=== PATIENT | female | born 1940 | race Caucasian/White ===

== ENCOUNTER 2019-05-06 06:58 | Day surgery (SDC) | payer BC | END 2019-05-06 22:55 | disposition home or self-care (01) | LOC: MOI US 06:58 | DX: C50.812 Malignant neoplasm of overlapping sites of left female breast (principal); Z17.0 Estrogen receptor positive status [ER+] | CPT/HCPCS: 19083; 77065; 88305; 88360; A4648 ==

== ENCOUNTER 2020-11-06 07:08 | Day surgery (SDC) | payer BC, MEDICARE ==
[~2020-11-06] VITALS: Ht 165.1 cm; Wt 78.0 kg
[~2020-11-06 07:08] MED LIST: ATOR20 PO; FARXIGA10 MG PO; LEVEMIR100 UNIT/1 SC; LISI20 PO; NOVOLOG100 UNIT/2 SC; THYR60 PO; TOCO1000 PO; VITAMIN A PO; VITAMIN B PO
--- NOTE | 2020-11-06 08:46 | NUR ---
Ambulatory in Day Surgery History, Chart, Medications and Allergies reviewed before start of procedure.Patient confirms NPO status and agrees with scheduled surgery. Patient reports completing Chlorhexadine shower X2 prior to admission to hospital.Surgical site prepped with 2% Chlorhexidine cloth wipe. Lungs clear T/O to Auscultation.
--- NOTE | 2020-11-06 12:29 | NUR ---
PT ARRIVED TO THE ROOM AT APPROXIMATELY 1205, SHE IS ALERT AND ORIENTED AT TIME OF ARRIVAL TO ROOM. BP ELEVATED, WILL MONITOR. PT DENIES PAIN.
--- NOTE | 2020-11-06 16:10 | NUR ---
POST OP: REPORT RECEIVED FROM LYNN, CHECKROOM CHIEF AT ABOUT 1155. CLAIM AUDITOR DERREK TO SETTLE PT IN ROOM
--- NOTE | 2020-11-06 16:12 | NUR ---
SUMMARY: PT IS POD0 L MASTECTOMY. VSS, A/O. PT DOING WELL, HAS AMBULATED AND VOIDED. ABLE TO EAT SOME FOOD, REG DIET FOR DINNER. SURGICAL SITE WNL. MARIE DRAINED TOTAL OF 50ML SALOME BLOOD, DR. SHEETS MADE AWARE, WILL MONITOR. PAIN SEEMS TO BE MANAGED WELL PER EMAR. REPORT PASSED TO DAVE RAO AT THIS TIME.
--- NOTE | 2020-11-06 16:40 | NUR ---
pt took her bs on her own cbg monitor it was elevated dr mendoza to be called re order pt also does not have her med ordered insulin or po meds
--- NOTE | 2020-11-06 17:28 | NUR ---
16 units humulog given per pt order cbg >160
--- NOTE | 2020-11-06 17:40 | NUR ---
pt req another diet unable to juan daniel reg text req dental soft
--- NOTE | 2020-11-07 04:30 | NUR ---
SHIFT SUMMARY: WILMA IS A&O X 4 WITH SOME MILD FORGETFULNESS NOTED. VSS, BP MILDLY ELEVATED WHICH SHE STATES IS D/T NOT TAKING HER BP MEDICATION YESTERDAY. SHE HAS HAD 95 CC OUT OF THE MARIE DRAIN THIS SHIFT. SHE HAS REQUESTED THAT THE OUTPUT BE DOCUMENTED AND THE DOCTOR NOTIFIED EACH TIME THE DRAIN IS EMPTIED. SHE WAS EDUCATED ON THE DOCUMENTATION PROCESS AND REASSURED THAT THE DOCTOR WOULD INDEED BE MADE AWARE. SHE IS ABLE TO MAKE HER NEEDS KNOWN. SHE IS TOLERATING PO INTAKE WELL, USES THE CALL LIGHT APPROPRIATELY, AND IS NOT IMPULSIVE. SHE IS A STANDBY ASSIST TO THE BATHROOM FOR CORD MANAGEMENT. SHE HAS DENIED PAIN THIS SHIFT. SHE IS LYING IN BED WITH THE CALL LIGHT IN REACH. WILL REPORT TO DAY SHIFT RN.
--- NOTE | 2020-11-07 07:58 | NUR ---
LOW CBG LOW BLOOD GLUCOSE RECIEVED ON AM CHECK. ON RECHECK PT GLUCOSE UP >200, ON PTS HOME METER SHE GOT A READING OF 164. PT WAS ALERT AND ORIENTED AND DENIED FEELING HYPOGLYCEMIC. SHE REQUESTED RECHECK.
--- NOTE | 2020-11-07 13:28 | NUR ---
DISCHARGE PT LEFT AT APPROX 1310 VIA WHEELCHAIR. DISCHARGE INSTRUCTIONS GONE OVER WITH PATIENT AND . DRESSING CHANGE SUPPLIES SENT HOME. INSTRUCTIONS ON DRESSING CHANGE GIVEN TO AND PT. DIRECTIONS FOR MARIE DRAIN CARE GONE OVER WITH AND PT. DENIED FURTHER QUESTIONS. PT DENIED PAIN PRIOR TO DISCHARGE. DRESSING CDI. BINDER IN PLACE.
--- NOTE | 2020-11-07 13:32 | NUR ---
PT REFUSED LUNCHTIME INSULIN. STATED SHE DOES NOT TAKE IT AT THIS TIME AND WAS GOING HOME SOON.
== END 2020-11-07 13:13 | disposition home or self-care (01) ==
LOC: ORSCMMR 07:08 → ORD 08:30 → SURS 12:03 → ORSCMMR 11-07 13:13
PROVIDERS: Surgery
PROC: 0HBU0ZZ Excision of Left Breast, Open Approach (ICD-10-PCS; principal; 2020-11-06 08:30)
DX: C50.912 Malignant neoplasm of unspecified site of left female breast (principal); I10 Essential (primary) hypertension; E11.9 Type 2 diabetes mellitus without complications; E03.9 Hypothyroidism, unspecified; E78.00 Pure hypercholesterolemia, unspecified; Z79.4 Long term (current) use of insulin; Z79.899 Other long term (current) drug therapy
CPT/HCPCS: 82947; 88307; A9270; A9270-GY; J0690; J1100; J1815; J2250; J2405; J2704; J3010; J7120

== ENCOUNTER 2022-02-15 09:32 | Inpatient (IN) | payer MEDICARE, OTHER ==
[~2022-02-15] VITALS: Ht 165.1 cm; Wt 78.2 kg
[2022-02-15 11:05] LABS: BASOPHILS ABSOLUTE AUTO 0.16 K/mm3 (0.00-0.23); BASOPHILS PERCENT AUTO 1 % (0-2); EOSINOPHILS ABSOLUTE AUTO 0.12 K/mm3 (0.00-0.68); EOSINOPHILS PERCENT AUTO 1 % (0-6); Hematocrit 51.3 % (33.0-51.0); IMMATURE GRAN ABSOLUTE AUTO 0.39 K/mm3 (0.00-0.10); IMMATURE GRAN PERCENT AUTO 2 % (0-1); LYMPHOCYTES ABSOLUTE AUTO 3.52 K/mm3 (0.84-5.20); LYMPHOCYTES PERCENT AUTO 17 % (21-46); MONOCYTES ABSOLUTE AUTO 1.45 K/mm3 (0.16-1.47); MONOCYTES PERCENT AUTO 7 % (4-13); Mean Corpuscular HGB 30.5 pg (26.0-34.0); Mean Corpuscular HGB Conc 33.1 g/dL (31.5-36.5); Mean Corpuscular Volume 92 fL (80-100); Mean Platelet Volume 9.9 fL (9.1-12.4); NEUTROPHILS ABSOLUTE AUTO 15.57 K/mm3 (1.96-9.15); NEUTROPHILS PERCENT AUTO 73 % (41-73); Platelet Count 386 K/mm3 (150-400); RDW Coefficient Variation 13.1 % (11.7-14.2); RDW Standard Deviation 43.8 fL (35.1-46.3); Red Blood Cell Count 5.58 M/mm3 (3.80-5.20); White Blood Cell Count 21.21 K/mm3 (4.00-11.30)
[2022-02-15 11:57] LABS: Influenza A, PCR NEGATIVE (NEGATIVE); Influenza B, PCR NEGATIVE (NEGATIVE); Resp Syncytial Virus, PCR NEGATIVE (NEGATIVE); SARS-Cov-2 (COVID-19) PCR, MMC NEGATIVE (NEGATIVE)
[2022-02-15 11:59] LABS: Albumin, Blood 2.4 g/dL (3.4-5.0); Albumin/Globulin Ratio 0.6 (0.8-1.8); Bilirubin, Total 0.2 mg/dL (0.1-1.0); Bun/Creatinine Ratio 163.9 (12.0-20.0); Calcium, Blood 7.7 mg/dL (8.5-10.1); Creatinine, Blood 0.59 mg/dL (0.40-1.00); Free Thyroxine 0.61 ng/dL (0.70-1.60); Globulin, Blood 3.7 g/dL (2.2-4.0); Magnesium, Blood 2.2 mg/dL (1.6-2.4); Potassium, Blood 5.1 mmol/L (3.5-5.5); Thyroid Stimulating Hormone 0.153 uIU/mL (0.360-4.800); Total Protein, Blood 6.1 g/dL (6.4-8.2); Triiodothyronine, Free 2.54 pg/mL (2.18-3.98)
[2022-02-15 12:07] LABS: Source, Urine Clean Catch
[2022-02-15 12:22] LABS: Appearance, Urine Clear (Clear); Bilirubin, Urine Neg (Neg); Blood, Urine 3+ (Neg); Color, Urine Yellow (P-Yellow); Glucose Qualitative, Urine 4+ (Neg); Ketones, Urine Neg (Neg); Leukocyte Esterase, Urine 1+ (Neg); Nitrite, Urine Neg (Neg); Protein, Urine Neg (Neg); Urobilinogen, Urine NORM (Normal)
[2022-02-15 13:04] LABS: Red Blood Cells, Urine 0-2 /hpf (0-2)
[2022-02-15 13:08] LABS: Bacteria Many /hpf; Squamous Epithelial Cells Not Seen /hpf (Few)
[2022-02-15 15:15] LABS: Base Excess Venous -14.8 mmol/L; Bicarbonate Venous 14.7 mmol/L (24.0-30.0); PCO2 Venous 28.5 mmHg (38-42); PO2 Venous 115 mmHg (38-42); pH Blood Venous 7.25 (7.34-7.37)
--- NOTE | 2022-02-15 17:00 | NUR ---
PT NEW ADMIT FROM ED. PT'S AT BEDSIDE AND ANSWERS QUESTIONS ABOUT HEALTH HISTORY AND MEDICATIONS. PT CONTRIBUTES TO CONVERSATION WELL. AMBULATES TO BATHROOM WITH 1 ASSIST AND WALKER. ODOROUS URINE NOTED AND URGENCY OF PT. BED ALARM ON FOR SAFETY. IVF RUNNING AT 150/HR PER ORDERS. NO ACUTE NEEDS OR CONCERNS AT THIS TIME.
[2022-02-15 18:38] LABS: Bun/Creatinine Ratio 128.2 (12.0-20.0); Calcium, Blood 8.7 mg/dL (8.5-10.1); Creatinine, Blood 0.62 mg/dL (0.40-1.00); Potassium, Blood 4.8 mmol/L (3.5-5.5)
--- NOTE | 2022-02-16 05:16 | NUR ---
NURSE NOTE/SHIFT SUMMARY: PT A/OX4, OCCASSIONAL REPEATED QUESTIONS. PT STANDBY ASSIST TO BEDSIDE COMMODE. DUE TO INCREASED WEAKNESS, FREQUENT URIRNATION AND URGENCY [place] PLACED- GOOD OUPUT. BLOOD SUGAR INCREASING THROUGHOUT THE NIGHT- CARLOS GAVE TELEPHONE ORDER FOR 12 UNITS REGULAR INSULIN X1 FOR ADDITIONAL GLUCOSE COVERAGE. BLOOD PRESSURE CONTINUED TO INCREASE UP TO SYSTOLIC BP REACHING 200'S AND 190 SYSTOLIC. 2 DOSES OF 10 MG IV HYDRALAZINE ADMINISTERED TO GET BLOOD PRESSURE UNDER CONTROL. PT CONTINUES TO REPORTS INCREASE STOMACH BURNING SENSATION AND REPORTS THAT IS WHY SHE DRINKS LARGE AMOUNTS OF MILK AT HOME. FREQUENTLY REQUESTING MILK AND ENSURE YET DECLINING ALL WATER. PT REPORTS MILK CONSUMPTION HAS NOT GIVEN MUCH RELIEF. EDUCATED ON SUGAR INTAKE WITH MILK AND ENSURE PRODUCTS WITH GLUCOSE MANAGEMENT. MAALOX GIVEN THIS MORNING TO ASSIST IN GI DISCOMFORT. PATIENT REPORTS SIGNIFICANT DECREASE IN GI DISCOMFORT AND IS PLEASED WITH GASTRIC BURNING AND CRAMPING RELIEF.
[2022-02-16 05:18] LABS: BASOPHILS PERCENT AUTO 1 % (0-2); EOSINOPHILS ABSOLUTE AUTO 0.06 K/mm3 (0.00-0.68); EOSINOPHILS PERCENT AUTO 0 % (0-6); Hematocrit 52.8 % (33.0-51.0); Hemoglobin 17.8 g/dL (11.5-16.0); IMMATURE GRAN ABSOLUTE AUTO 0.36 K/mm3 (0.00-0.10); IMMATURE GRAN PERCENT AUTO 2 % (0-1); LYMPHOCYTES ABSOLUTE AUTO 2.88 K/mm3 (0.84-5.20); LYMPHOCYTES PERCENT AUTO 14 % (21-46); MONOCYTES ABSOLUTE AUTO 1.38 K/mm3 (0.16-1.47); MONOCYTES PERCENT AUTO 7 % (4-13); Mean Corpuscular HGB 30.4 pg (26.0-34.0); Mean Corpuscular HGB Conc 33.7 g/dL (31.5-36.5); Mean Corpuscular Volume 90 fL (80-100); Mean Platelet Volume 9.6 fL (9.1-12.4); NEUTROPHILS ABSOLUTE AUTO 16.56 K/mm3 (1.96-9.15); NEUTROPHILS PERCENT AUTO 78 % (41-73); Platelet Count 375 K/mm3 (150-400); RDW Coefficient Variation 13.2 % (11.7-14.2); RDW Standard Deviation 43.9 fL (35.1-46.3); Red Blood Cell Count 5.85 M/mm3 (3.80-5.20); White Blood Cell Count 21.34 K/mm3 (4.00-11.30)
[2022-02-16 05:52] LABS: Magnesium, Blood 2.6 mg/dL (1.6-2.4)
[2022-02-16 05:53] LABS: Albumin, Blood 3.1 g/dL (3.4-5.0); Albumin/Globulin Ratio 0.7 (0.8-1.8); Bilirubin, Total 0.3 mg/dL (0.1-1.0); Bun/Creatinine Ratio 100.2 (12.0-20.0); Calcium, Blood 9.4 mg/dL (8.5-10.1); Creatinine, Blood 0.59 mg/dL (0.40-1.00); Globulin, Blood 4.4 g/dL (2.2-4.0); Potassium, Blood 4.9 mmol/L (3.5-5.5); Total Protein, Blood 7.5 g/dL (6.4-8.2)
[2022-02-16 08:00] LABS: Base Excess Venous -4.9 mmol/L; PCO2 Venous 40.3 mmHg (38-42); pH Blood Venous 7.33 (7.34-7.37)
--- NOTE | 2022-02-16 18:14 | NUR ---
SHIFT SUMMARY PT A&OX3-4 AND IN PLEASENT MOOD T/O SHIFT. PT SPOUSE IN TO SEE HER DURING VISITING HOURS. BLOOD GLUCOSE MEDICATED PER EMAR. EATS MINIMAL AMOUNT OF MEAL-SPOUSE PROVIDED PREMIER PROTEIN SHAKES IN PT ROOM. CALL LIGHT W/IN REACH, VSS. PLAN TO BE UP FOR MEALS. C/O HEART BURN/INDIGESTION T/O SHIFT.
--- NOTE | 2022-02-17 05:47 | NUR ---
SHIFT SUMMARY 81 YR F ADMITTED ON 02/15/22 FOR SEPSIS/UTI. FULL CODE. NO ACUTE CHANGES THIS SHIFT. PT HAS SPENT ALMOST THIS ENTIRE SHIFT ASLEEP. SHE HAS NOT ASKED FOR ANY MILK OR SHAKE DRINKS THIS SHIFT. SHE IS PLEASANT AND COOPERATIVE. BED IN LOW POSITION AND CALL LIGHT WITHIN REACH.
[2022-02-17 06:01] LABS: Base Excess Venous -6.7 mmol/L; Bicarbonate Venous 20.2 mmol/L (24.0-30.0); PCO2 Venous 29.9 mmHg (38-42); PO2 Venous 134 mmHg (38-42); pH Blood Venous 7.39 (7.34-7.37)
[2022-02-17 06:13] LABS: Bun/Creatinine Ratio 123.3 (12.0-20.0); Calcium, Blood 8.9 mg/dL (8.5-10.1); Creatinine, Blood 0.44 mg/dL (0.40-1.00); Magnesium, Blood 2.5 mg/dL (1.6-2.4); Phosphorus, Blood 2.7 mg/dL (2.5-4.9); Potassium, Blood 4.5 mmol/L (3.5-5.5)
--- NOTE | 2022-02-17 16:19 | NUR ---
SHIFT SUMMARY PT A&O X4, MOOD WITHDRAWN-QUIET AFFECT. SPOUSE @ BEDSIDE T/O MOST OF SHIFT. PT UP FOR ALL THREE MEALS, PURE WICK IN PLACE WHILE IN BED. INCONT. T/O SHIFT. VSS. CALL LIGHT W/IN REACH. BLOOD GLUCOSE MEDICATED PER EMAR. PT EDUCATED ABOUT THE AMOUNT OF SUGAR FOUND IN MILK AFTER SEVERAL REQUESTS FOR ADDITIONAL MILK. C/O STOMACH ACHE MEDICATED PER EMAR.
--- NOTE | 2022-02-18 04:40 | NUR ---
Rn summary: Patient is alert and oriented. Very pleasant. Pt has done well tonight. She had purewick with yellow urine while in bed. Bowel tones are hyper, pt medicated x2 with maalox for stomache upset. Pt drinking protein drinks from home. Pt states plan is for her to discharge home today. Call light in reach, uses it apropriately.
[2022-02-18 05:26] LABS: BASOPHILS ABSOLUTE AUTO 0.06 K/mm3 (0.00-0.23); BASOPHILS PERCENT AUTO 0 % (0-2); EOSINOPHILS ABSOLUTE AUTO 0.24 K/mm3 (0.00-0.68); EOSINOPHILS PERCENT AUTO 2 % (0-6); Hematocrit 45.5 % (33.0-51.0); Hemoglobin 15.2 g/dL (11.5-16.0); IMMATURE GRAN ABSOLUTE AUTO 0.15 K/mm3 (0.00-0.10); IMMATURE GRAN PERCENT AUTO 1 % (0-1); LYMPHOCYTES ABSOLUTE AUTO 3.51 K/mm3 (0.84-5.20); LYMPHOCYTES PERCENT AUTO 23 % (21-46); MONOCYTES ABSOLUTE AUTO 1.19 K/mm3 (0.16-1.47); MONOCYTES PERCENT AUTO 8 % (4-13); Mean Corpuscular HGB 30.3 pg (26.0-34.0); Mean Corpuscular HGB Conc 33.4 g/dL (31.5-36.5); Mean Corpuscular Volume 91 fL (80-100); Mean Platelet Volume 9.6 fL (9.1-12.4); NEUTROPHILS ABSOLUTE AUTO 9.98 K/mm3 (1.96-9.15); NEUTROPHILS PERCENT AUTO 66 % (41-73); Platelet Count 360 K/mm3 (150-400); RDW Coefficient Variation 13.3 % (11.7-14.2); Red Blood Cell Count 5.01 M/mm3 (3.80-5.20); White Blood Cell Count 15.13 K/mm3 (4.00-11.30)
[2022-02-18 05:49] LABS: Bun/Creatinine Ratio 104.4 (12.0-20.0); Calcium, Blood 8.8 mg/dL (8.5-10.1); Creatinine, Blood 0.52 mg/dL (0.40-1.00); Potassium, Blood 4.3 mmol/L (3.5-5.5)
[2022-02-18] MEDS ORDERED: VISBIOME 112.51 EACH PO (12:17)
[2022-02-18] MEDS ORDERED: CEPH500 PO (12:17)
== END 2022-02-18 12:48 | disposition home or self-care (01) | DRG 690 ==
LOC: ER 09:32 → MEDS 14:25
PROVIDERS: Emergency Medicine; Internal Medicine; Nurse Practitioner Acute Care; Physician Assistant; ADMIT Internal Medicine
DX: N39.0 Urinary tract infection, site not specified (principal); E87.2 Acidosis; Z20.822 Contact with and (suspected) exposure to COVID-19; E86.0 Dehydration; B96.1 Klebsiella pneumoniae [K. pneumoniae] as the cause of diseases classified elsewhere; E87.8 Other disorders of electrolyte and fluid balance, not elsewhere classified; T38.3X5A Adverse effect of insulin and oral hypoglycemic [antidiabetic] drugs, initial encounter; E78.00 Pure hypercholesterolemia, unspecified; E11.65 Type 2 diabetes mellitus with hyperglycemia; I10 Essential (primary) hypertension; E03.9 Hypothyroidism, unspecified; Z79.4 Long term (current) use of insulin; Z79.899 Other long term (current) drug therapy; Z85.3 Personal history of malignant neoplasm of breast; Z90.12 Acquired absence of left breast and nipple; Z90.89 Acquired absence of other organs; Z98.890 Other specified postprocedural states
CPT/HCPCS: 0241U; 36415; 80048; 80053; 81001; 82010; 82803; 82947; 83605; 83735; 83880; 84100; 84439; 84443; 84481; 84484; 85025; 87040; 87077; 87086; 87186; 93005; 93010; 96374; 97110; 97162; 97530; 99285-25; A9270; J0360; J0696; J1650; J1815; J7030

== ENCOUNTER 2022-03-10 10:47 | Inpatient (IN) | payer BC ==
[~2022-03-10] VITALS: Ht 165.1 cm; Wt 81.3 kg
[~2022-03-10 10:47] MED LIST changes: +CEPH500 PO; +VISBIOME 112.51 EACH PO
[2022-03-10 11:30] LABS: BASOPHILS ABSOLUTE AUTO 0.15 K/mm3 (0.00-0.23); BASOPHILS PERCENT AUTO 1 % (0-2); EOSINOPHILS ABSOLUTE AUTO 0.06 K/mm3 (0.00-0.68); EOSINOPHILS PERCENT AUTO 0 % (0-6); Hematocrit 35.5 % (33.0-51.0); Hemoglobin 11.3 g/dL (11.5-16.0); IMMATURE GRAN ABSOLUTE AUTO 0.75 K/mm3 (0.00-0.10); IMMATURE GRAN PERCENT AUTO 3 % (0-1); LYMPHOCYTES ABSOLUTE AUTO 7.66 K/mm3 (0.84-5.20); LYMPHOCYTES PERCENT AUTO 30 % (21-46); MONOCYTES ABSOLUTE AUTO 1.73 K/mm3 (0.16-1.47); MONOCYTES PERCENT AUTO 7 % (4-13); Mean Corpuscular HGB 30.1 pg (26.0-34.0); Mean Corpuscular HGB Conc 31.8 g/dL (31.5-36.5); Mean Corpuscular Volume 94 fL (80-100); Mean Platelet Volume 9.9 fL (9.1-12.4); NEUTROPHILS ABSOLUTE AUTO 15.11 K/mm3 (1.96-9.15); NEUTROPHILS PERCENT AUTO 59 % (41-73); NRBC ABSOLUTE 0.06 K/mm3 (0.00-0.02); NRBC Auto 0.2 /100 WBC (0.0-0.2); Platelet Count 418 K/mm3 (150-400); RDW Standard Deviation 47.4 fL (35.1-46.3); Red Blood Cell Count 3.76 M/mm3 (3.80-5.20); White Blood Cell Count 25.46 K/mm3 (4.00-11.30)
[2022-03-10 11:52] LABS: Albumin, Blood 2.8 g/dL (3.4-5.0); Albumin/Globulin Ratio 0.8 (0.8-1.8); Bilirubin, Total 0.1 mg/dL (0.1-1.0); Bun/Creatinine Ratio 97.6 (12.0-20.0); Calcium, Blood 9.5 mg/dL (8.5-10.1); Creatinine, Blood 0.67 mg/dL (0.40-1.00); Globulin, Blood 3.7 g/dL (2.2-4.0); Potassium, Blood 5.1 mmol/L (3.5-5.5); Total Protein, Blood 6.5 g/dL (6.4-8.2)
[2022-03-10 12:35] LABS: Source, Urine Clean Catch
[2022-03-10 12:57] LABS: Bilirubin, Urine Neg (Neg); Blood, Urine 1+ (Neg); Glucose Qualitative, Urine Neg (Neg); Ketones, Urine Neg (Neg); Leukocyte Esterase, Urine 1+ (Neg); Nitrite, Urine Neg (Neg); Protein, Urine Neg (Neg); Urobilinogen, Urine NORM (Normal)
[2022-03-10 13:23] LABS: Appearance, Urine Clear (Clear); Color, Urine Yellow (P-Yellow)
[2022-03-10 13:24] LABS: Bacteria Many /hpf; Red Blood Cells, Urine 0-2 /hpf (0-2); Squamous Epithelial Cells Few /hpf (Few); White Blood Cells, Urine 0-2 /hpf (0-5)
[2022-03-10 15:11] LABS: Hematocrit 29.6 % (33.0-51.0); Hemoglobin 9.6 g/dL (11.5-16.0)
--- NOTE | 2022-03-10 16:17 | NUR ---
THE PATIENT WAS BROUGHT TO DAY SURGERY FROM THE ER FOR HER PROCEDURE.
--- NOTE | 2022-03-10 17:29 | NUR ---
03/10/22 1729 Cindi Guevara HISTORY, CHART, MEDICATIONS AND ALLERGIES REVIEWED BEFORE START OF PROCEDURE. PATIENT CONFIRMS NPO STATUS AND AGREES WITH SCHEDULED PROCEDURE. 3-LEAD EKG REVIEWED WITH PHYSICIAN PRIOR TO START OF PROCEDURE. MONITOR INTACT WITH CONTINUOUS PULSE OXIMETRY,CAPNOGRAPHY, 3-LEAD EKG, INTERMITTENT BP. SUPPLEMENTAL O2 TO BE TITRATED THROUGHOUT PROCEDURE TO MAINTAIN O2 SATURATION ABOVE 90%. PATIENT DETERMINED TO BE ASA APPROPRIATE FOR PROPOFOL SEDATION PRIOR TO START OF PROCEDURE BY DR. KNIGHT, ANESTHESIOLOGIST, CLEAR PT FOR RN SEDATION, CASE WAS ORIGINALLY SCHEDULED ADD ON EGD WITH MAC.
--- NOTE | 2022-03-10 18:48 | NUR ---
Received report from Day surgery and patient arrived via gurney and monitored. She is alert and oriented and is able to communicate her needs. he rusband followed and is now at bedside. Dr Mcdonnell came by as well and gave report. She has 20ga IV in RAC and is infusing Protonix at 10ml/hr. She is very pale and states cold and gave warm blankets. She will be receiving 1 unit PRBC and McGlade consult in if become hemodynamically unstable.
[2022-03-10 18:54] LABS: Hematocrit 26.1 % (33.0-51.0); Hemoglobin 8.7 g/dL (11.5-16.0)
--- NOTE | 2022-03-10 19:35 | NUR ---
ASSESSMENT/ASSUMED CARE PT A/O X 4. AT BEDSIDE, PHONE NUMBER WRITTEN ON WHITEBOARD, THEN WENT HOME FOR THE NIGHT. PT SKIN COOL, AND PALE. NSR IN THE 80S, VSS. LUNGS CLEAR AND DIM. POWERGLIDE INSERTED AND PRBC UNIT STARTED. PROTONIX GTT INFUSING. LONG ACTING INSULIN HELD D/T NPO STATUS AND CBG OF 94. PT DENIES PAIN, AWNSERING QUESTIONS AND FOLLOWING DIRECTIONS.
[2022-03-10 21:26] LABS: Source, Urine Foley catheter
[2022-03-10 21:51] LABS: Bilirubin, Urine Neg (Neg); Blood, Urine Neg (Neg); Glucose Qualitative, Urine Neg (Neg); Ketones, Urine Neg (Neg); Leukocyte Esterase, Urine 1+ (Neg); Nitrite, Urine Neg (Neg); Protein, Urine Neg (Neg); Specific Gravity, Urine 1.015 (1.003-1.022); Urobilinogen, Urine NORM (Normal)
[2022-03-10 22:00] LABS: Appearance, Urine Clear (Clear); Color, Urine Yellow (P-Yellow)
[2022-03-10 22:01] LABS: Bacteria Rare /hpf; Red Blood Cells, Urine Not Seen /hpf (0-2); Squamous Epithelial Cells Not Seen /hpf (Few)
[2022-03-11 00:07] LABS: Hematocrit 29.4 % (33.0-51.0); Hemoglobin 9.8 g/dL (11.5-16.0)
--- NOTE | 2022-03-11 00:12 | NUR ---
MD CALL TO DR HANCOCK REGARDING BLOOD GLUCOSE 60. ORDERS RECEIVED.
--- NOTE | 2022-03-11 00:28 | NUR ---
BLOOD GLUCOSE 60 CHANGED IV FLUIDS TO D5 1/2 NS 75 ML/HR. GIVEN 1/2 AMP D50. PT DENIES S/S OF HYPOGLYCEMIA.
[2022-03-11 03:29] LABS: BASOPHILS ABSOLUTE AUTO 0.07 K/mm3 (0.00-0.23); BASOPHILS PERCENT AUTO 1 % (0-2); EOSINOPHILS ABSOLUTE AUTO 0.12 K/mm3 (0.00-0.68); EOSINOPHILS PERCENT AUTO 1 % (0-6); Hematocrit 27.8 % (33.0-51.0); Hemoglobin 9.4 g/dL (11.5-16.0); IMMATURE GRAN ABSOLUTE AUTO 0.21 K/mm3 (0.00-0.10); IMMATURE GRAN PERCENT AUTO 1 % (0-1); LYMPHOCYTES ABSOLUTE AUTO 2.36 K/mm3 (0.84-5.20); LYMPHOCYTES PERCENT AUTO 16 % (21-46); MONOCYTES ABSOLUTE AUTO 1.22 K/mm3 (0.16-1.47); MONOCYTES PERCENT AUTO 8 % (4-13); Mean Corpuscular HGB 31.1 pg (26.0-34.0); Mean Corpuscular HGB Conc 33.8 g/dL (31.5-36.5); Mean Corpuscular Volume 92 fL (80-100); Mean Platelet Volume 9.4 fL (9.1-12.4); NEUTROPHILS ABSOLUTE AUTO 10.78 K/mm3 (1.96-9.15); NEUTROPHILS PERCENT AUTO 73 % (41-73); Platelet Count 239 K/mm3 (150-400); RDW Coefficient Variation 14.3 % (11.7-14.2); RDW Standard Deviation 47.1 fL (35.1-46.3); Red Blood Cell Count 3.02 M/mm3 (3.80-5.20); White Blood Cell Count 14.76 K/mm3 (4.00-11.30)
[2022-03-11 03:47] LABS: Albumin, Blood 2.2 g/dL (3.4-5.0); Albumin/Globulin Ratio 0.8 (0.8-1.8); Bilirubin, Total 0.3 mg/dL (0.1-1.0); Bun/Creatinine Ratio 62.8 (12.0-20.0); Calcium, Blood 7.7 mg/dL (8.5-10.1); Creatinine, Blood 0.59 mg/dL (0.40-1.00); Globulin, Blood 2.8 g/dL (2.2-4.0); Magnesium, Blood 1.9 mg/dL (1.6-2.4); Potassium, Blood 4.2 mmol/L (3.5-5.5)
[2022-03-11 06:07] LABS: Hematocrit 27.1 % (33.0-51.0); Hemoglobin 8.8 g/dL (11.5-16.0)
--- NOTE | 2022-03-11 06:31 | NUR ---
SHIFT SUMMARY PT IS A/O X 4. PALE, AND COOL SKIN. NRS 60-80S. VSS. LUNG SOUNDS COARSE AND DIM IN THE BASES. SATS HIGH 90'S ON 2L NC. ACTIVE BOWEL SOUNDS. NO BLEEDING NOTED ON THIS PM. 1 UNIT PRBC INFUSED. SANCHEZ PATENT DRAINING CLEAR YELLOW URINE. HYPOGLYCEMIC AT 0000 CBG. SEE PREVIOUS NOTE FOR INTERVENTIONS. CURRENTLY RUNNING D5 1/2 75ML/HR IN DAMIAN POWERGLIDE. PROTONIX GTT RUNNING 10ML/HR IN L FOREARM PIV.
[2022-03-11 11:13] LABS: Hematocrit 27.8 % (33.0-51.0); Hemoglobin 9.1 g/dL (11.5-16.0)
[2022-03-11 15:46] LABS: Hematocrit 28.5 % (33.0-51.0); Hemoglobin 9.4 g/dL (11.5-16.0)
--- NOTE | 2022-03-11 18:46 | NUR ---
SUMMARY PT RESTING IN BED. SHE IS FEELING MUCH BETTER. DENIES ALL PAIN TODAY. NO SIGNS OF BLEEDING TODAY. HAS BEEN TOLERATING CLEAR LIQUID TRAY. VSS. NO ACUTE CHANGES THIS SHIFT. USING CALL LIGHT APPROPRIATELY.
[2022-03-11 19:43] LABS: Hematocrit 27.3 % (33.0-51.0); Hemoglobin 9.1 g/dL (11.5-16.0)
--- NOTE | 2022-03-11 22:44 | NUR ---
ASSUMED CARE PATIENT IS LYING IN BED WATCHING TV. GREETS STAFF UPON ENTERING ROOM. DINNER TRAY IS ON BEDSIDE TABLE, EMPTY OF FOOD. WATER AND BELONGINGS ON BEDSIDE TABLE. PROTONIX GTT INF TO LAC IV. NO VISITORS IN THE ROOM AT THIS TIME. SANCHEZ PATENT AND DRAINING YELLOW CLEAR URINE TO GRAVITY. PATIENT DENIES PAIN AND NAUSEA. NO SIGNS OF BLEEDING SEEN. VSS. REPORT RECEIVED FROM DAVE ABDALLA.
[2022-03-12 03:43] LABS: BASOPHILS ABSOLUTE AUTO 0.07 K/mm3 (0.00-0.23); BASOPHILS PERCENT AUTO 1 % (0-2); EOSINOPHILS ABSOLUTE AUTO 0.13 K/mm3 (0.00-0.68); EOSINOPHILS PERCENT AUTO 1 % (0-6); Hematocrit 28.2 % (33.0-51.0); Hemoglobin 9.2 g/dL (11.5-16.0); IMMATURE GRAN ABSOLUTE AUTO 0.12 K/mm3 (0.00-0.10); IMMATURE GRAN PERCENT AUTO 1 % (0-1); LYMPHOCYTES ABSOLUTE AUTO 2.59 K/mm3 (0.84-5.20); LYMPHOCYTES PERCENT AUTO 20 % (21-46); MONOCYTES ABSOLUTE AUTO 1.11 K/mm3 (0.16-1.47); MONOCYTES PERCENT AUTO 8 % (4-13); Mean Corpuscular HGB 30.6 pg (26.0-34.0); Mean Corpuscular HGB Conc 32.6 g/dL (31.5-36.5); Mean Corpuscular Volume 94 fL (80-100); Mean Platelet Volume 9.9 fL (9.1-12.4); NEUTROPHILS ABSOLUTE AUTO 9.23 K/mm3 (1.96-9.15); NEUTROPHILS PERCENT AUTO 70 % (41-73); Platelet Count 235 K/mm3 (150-400); RDW Coefficient Variation 14.4 % (11.7-14.2); RDW Standard Deviation 49.1 fL (35.1-46.3); Red Blood Cell Count 3.01 M/mm3 (3.80-5.20); White Blood Cell Count 13.25 K/mm3 (4.00-11.30)
[2022-03-12 03:57] LABS: Bun/Creatinine Ratio 30.8 (12.0-20.0); Creatinine, Blood 0.55 mg/dL (0.40-1.00); Potassium, Blood 4.6 mmol/L (3.5-5.5)
--- NOTE | 2022-03-12 04:52 | NUR ---
SHIFT SUMMARY PATIENT HAD DIFFICULTY FALLING ASLEEP-BENADRYL PO ORDERED BY DR. HANCOCK FOR SLEEP AID. PATIENT SLEPT OFF AND ON T/O NIGHT AFTER THIS. PATIENT CHECKED HER GLUCOSE SEVERAL TIMES T/O THE NIGHT WITH LEVELS DECREASING ACCORDING TO HER HOME MACHINE TO A LOW OF 75. ENCOURAGED PATIENT TO DRINK MARY MIST ON BEDSIDE MULTIPLE TIMES. PATIENT AGREED TO MARY MIST THIS MORNING AFTER READING OF 75. AT 0430 PATIENT AWOKE STATING SHE DID NOT KNOW WHERE SHE WAS, HOW SHE GOT HERE, OR WHERE HER WAS. AFTER ASKING HER TO FILL IN WHAT SHE DOES REMEMBER, SHE BECAME REORIENTED AGAIN. GTTS: PROTONIX @ 10ML/HR LABS: H&H ARE STABALIZING WITH HGB MAINTAINING ABOVE 8. NO SIGNS OR SYMPTOMS OF BLEEDING.
[2022-03-12 09:36] LABS: Hematocrit 28.2 % (33.0-51.0); Hemoglobin 9.2 g/dL (11.5-16.0)
--- NOTE | 2022-03-12 10:09 | NUR ---
AM NOTE... ASSUMED CARE OF PT AT 0700, THE PT IS A&Ox4. SHE WAS ADMITTED FOR A GI BLEED AND HAD AN EGD. CURRENTLY THE PT IS ON CLEAR LIQUID DIET AND TOLERATING THIS WELL, NO ABD PAIN WITH EATING, OR PALPATION. THE PT HAS NOT HAD A BM SINCE ADMIT. THE PT'S VS STABLE, PT IS IN SR W/ OCC PVCs IN THE 70'S. BT PRESENT AND HYPOACTIVE. THE PT'S H&H CONTINUES TO BE STABLE. CALL LIGHT IN REACH WILL CONTINUE TO MONITOR.
[2022-03-12 13:14] LABS: Hematocrit 29.4 % (33.0-51.0); Hemoglobin 9.6 g/dL (11.5-16.0)
--- NOTE | 2022-03-12 14:40 | NUR ---
PT UPDATE.... GI PROVIDER AT THE BEDSIDE TO ASSESS THE PT. PT IS CHANGED TO PCU STATUS AND IS TO CONTIUE A CLEAR LIQUID DIET D/T THE SEVERE SWELLING AND ULCER IN THE DUODENUM. THE PROTONIX DRIP IS ALSO CONTINUED PER GI PROVIDER. THE PT WORKED WITH PT/OT THIS AFTERNOON. THE PT'S SANCHEZ WAS D/C'd PER ORDERS. THE PT WAS UP IN THE RECLINER CHAIR FOR APROX 2 HRS. CALL LIGHT IN REACH WILL CONTINUE TO MONITOR.
--- NOTE | 2022-03-12 17:24 | NUR ---
SHIFT SUMMARY... NO ACUTE NEGATIVE CHANGES NOTED THIS SHIFT. THE PT'S VS HAVE BEEN STABLE AND PT HAS NOT HAD ANY SIGNS OR SYMPTOMS OF BLEEDING. THE PT DID HAVE A SMALL, SOFT FORMED BLACK/MAROON STOOL WHICH PER GI PROVIDER IS EXPECTED. THE PT HAS BEEN UP TO THE RECLINER CHAIR FOR LUNCH AND DINNER 1P ASSIST. THE PT DENIES ANY N/V OR ABD PAIN THIS SHIFT. CALL LIGHT IN REACH WILL CONTINUE TO MONITOR UNTIL REPORT IS GIVEN TO ONCOMING RN.
[2022-03-12 19:09] LABS: Hematocrit 31.3 % (33.0-51.0)
--- NOTE | 2022-03-12 19:13 | NUR ---
ASSUMED CARE PATIENT IS LYING IN BED WATCHING TELEVISION. PROTONIX GTT INF TO DAMIAN PG. NO FAMILY OR VISITORS AT BEDSIDE. BELONGINGS ON BEDSIDE TABLE. CALL LIGHT WITHIN REACH. MONITOR SHOWS ST WITH RATE 100'S. REPORT RECEIVED FROM DAVE ENCINAS.
[2022-03-13 03:34] LABS: BASOPHILS ABSOLUTE AUTO 0.06 K/mm3 (0.00-0.23); BASOPHILS PERCENT AUTO 0 % (0-2); EOSINOPHILS ABSOLUTE AUTO 0.21 K/mm3 (0.00-0.68); EOSINOPHILS PERCENT AUTO 2 % (0-6); Hematocrit 28.5 % (33.0-51.0); Hemoglobin 9.4 g/dL (11.5-16.0); IMMATURE GRAN ABSOLUTE AUTO 0.12 K/mm3 (0.00-0.10); IMMATURE GRAN PERCENT AUTO 1 % (0-1); LYMPHOCYTES ABSOLUTE AUTO 3.59 K/mm3 (0.84-5.20); LYMPHOCYTES PERCENT AUTO 26 % (21-46); MONOCYTES ABSOLUTE AUTO 1.31 K/mm3 (0.16-1.47); MONOCYTES PERCENT AUTO 10 % (4-13); Mean Corpuscular HGB 30.5 pg (26.0-34.0); Mean Corpuscular Volume 93 fL (80-100); Mean Platelet Volume 9.7 fL (9.1-12.4); NEUTROPHILS ABSOLUTE AUTO 8.35 K/mm3 (1.96-9.15); NEUTROPHILS PERCENT AUTO 61 % (41-73); Platelet Count 241 K/mm3 (150-400); RDW Coefficient Variation 14.2 % (11.7-14.2); RDW Standard Deviation 46.6 fL (35.1-46.3); Red Blood Cell Count 3.08 M/mm3 (3.80-5.20); White Blood Cell Count 13.64 K/mm3 (4.00-11.30)
[2022-03-13 03:49] LABS: Albumin, Blood 2.4 g/dL (3.4-5.0); Anion Gap 7 mmol/L (6-16); Blood Urea Nitrogen 17 mg/dL (8-24); Bun/Creatinine Ratio 33.5 (12.0-20.0); CO2, Blood 26 mmol/L (21-32); Calcium, Blood 8.1 mg/dL (8.5-10.1); Chloride, Blood 109 mmol/L (98-108); Creatinine, Blood 0.51 mg/dL (0.40-1.00); Glomerular Filtration Rate 93 (60-); Glucose, Blood 74 mg/dL (70-99); Phosphorus, Blood 1.5 mg/dL (2.5-4.9); Potassium, Blood 3.8 mmol/L (3.5-5.5); Sodium, Blood 142 mmol/L (136-145)
--- NOTE | 2022-03-13 05:43 | NUR ---
SHIFT SUMMARY PATIENT REQUIRED EDUCATION AT BEGINNING OF SHIFT AND ENCOURAGEMENT FOR ACTIVITY AFTER REQUESTING TO USE THE BEDPAN TO URINATE D/T BEING COLD. AFTER IN DEPTH CONVERSATION TO REASON THAT ACTIVITY IS IMPORTANT, PATIENT BEGAN BEING MORE INDEPENDENT WITH ADL'S. PATIENT REPORTED IMPROVEMENT WITH MELATONIN IN SLEEP WITHOUT CONFUSION THAT BENADRYL CAUSED. PATIENT WAS UP TO BSC MULTIPLE TIMES T/O THE NIGHT. PATIENT DENIED PAIN/NAUSEA. NO BM DURING SHIFT.
--- NOTE | 2022-03-13 07:54 | NUR ---
AM NOTE.... REPORT GIVEN TO PROGRAM PROJECT MANAGER. THE PT IS EATING BREAKFAST AT THIS TIME, ONCE SHE IS DONE SHE WILL BE MOVED TO U 14. THE PT'S HAS BEEN NOTIFIED. ALL OF THE PT'S BELONGINGS HAVE BEEN PACKED AND WILL GO WITH THE PT.
[2022-03-13 11:34] LABS: Hematocrit 29.5 % (33.0-51.0); Hemoglobin 9.5 g/dL (11.5-16.0)
--- NOTE | 2022-03-13 18:45 | NUR ---
SHIFT SUMMARY S/P BLEEDING DUODENAL ULCER, A/OX4, VSS, TOLERATING PO CLEARS. PT TRANSFERRED FROM ICU TO PCU SHORTLY AFTER SHIFT START, PT HAD NO CONCERNS OR UNMET NEEDS AT TIME OF ARRIVAL OTHER THAN REQUESTING A WARM BLANKET WHICH WAS PROVIDED. PT HAD IV PROTONIX DRIP RUNNING T/O THE SHIFT, ONE TIME DOSE OF SODIUM PHOSPHATE ADMINISTERED ORDERED, PT DID WELL WITH ALL MEALS TODAY, 1 DARK BM BUT NO SIGNS OF BRIGHT RED BLOOD, H&H CHECKED BY LAB ORDERED. NO ACUTE EVENTS THIS SHIFT, CALL LIGHT IN REACH, WILL CTM AND REPORT TO ONCOMING VLADISLAV RN.
--- NOTE | 2022-03-13 19:42 | NUR ---
ASSESSMENT/ASSUMED CARE PT SITTING UP IN BED LISTENING TO MUSIC. DENIES PAIN OR DISCOMFORT. A&O. MOVING SELF IN BED. LUNGS CLEAR ON ROOMAIR. RESP EVEN AND NONLABORED. HEART RATE REGULAR. BP STABLE. BT+. PT UP TO BSC HAD BLACK STOOL. IV POWER GLIDE TO RIGHT UPPER ARM WITH DRSG COMING UP, WILL CHANGE. IV 20G TO LEFT AC SALINE LOCKED, SITE CLEAR. FLUSHED WITHOUT DIFFICULTY. TRACE BILAT PEDAL EDEMA.
[2022-03-13 22:00] LABS: Hematocrit 28.3 % (33.0-51.0); Hemoglobin 9.1 g/dL (11.5-16.0)
[2022-03-14 04:15] LABS: Albumin, Blood 2.4 g/dL (3.4-5.0); Anion Gap 6 mmol/L (6-16); Blood Urea Nitrogen 14 mg/dL (8-24); Bun/Creatinine Ratio 27.6 (12.0-20.0); CO2, Blood 27 mmol/L (21-32); Calcium, Blood 8.1 mg/dL (8.5-10.1); Chloride, Blood 108 mmol/L (98-108); Creatinine, Blood 0.51 mg/dL (0.40-1.00); Glomerular Filtration Rate 93 (60-); Glucose, Blood 62 mg/dL (70-99); Phosphorus, Blood 2.4 mg/dL (2.5-4.9); Potassium, Blood 3.6 mmol/L (3.5-5.5); Sodium, Blood 141 mmol/L (136-145)
--- NOTE | 2022-03-14 04:30 | NUR ---
BLOOD GLUCOSE 62 ON LABS, TO TOOK ENSURE CLEAR AND IS NOW WORKING ON APPLE JUICE
[2022-03-14 05:00] LABS: BASOPHILS ABSOLUTE AUTO 0.07 K/mm3 (0.00-0.23); BASOPHILS PERCENT AUTO 0 % (0-2); EOSINOPHILS ABSOLUTE AUTO 0.13 K/mm3 (0.00-0.68); EOSINOPHILS PERCENT AUTO 1 % (0-6); Hematocrit 31.2 % (33.0-51.0); IMMATURE GRAN ABSOLUTE AUTO 0.15 K/mm3 (0.00-0.10); IMMATURE GRAN PERCENT AUTO 1 % (0-1); LYMPHOCYTES ABSOLUTE AUTO 5.15 K/mm3 (0.84-5.20); LYMPHOCYTES PERCENT AUTO 27 % (21-46); MONOCYTES ABSOLUTE AUTO 1.62 K/mm3 (0.16-1.47); MONOCYTES PERCENT AUTO 8 % (4-13); Mean Corpuscular HGB 30.2 pg (26.0-34.0); Mean Corpuscular HGB Conc 32.1 g/dL (31.5-36.5); Mean Corpuscular Volume 94 fL (80-100); Mean Platelet Volume 9.8 fL (9.1-12.4); NEUTROPHILS ABSOLUTE AUTO 12.13 K/mm3 (1.96-9.15); NEUTROPHILS PERCENT AUTO 63 % (41-73); NRBC ABSOLUTE 0.03 K/mm3 (0.00-0.02); NRBC Auto 0.2 /100 WBC (0.0-0.2); Platelet Count 309 K/mm3 (150-400); RDW Standard Deviation 46.9 fL (35.1-46.3); Red Blood Cell Count 3.31 M/mm3 (3.80-5.20); White Blood Cell Count 19.25 K/mm3 (4.00-11.30)
--- NOTE | 2022-03-14 05:39 | NUR ---
SHIFT SUMMARY PT RESTING QUIETLY. DENIES PAIN OR DISCOMFORT. UP TO BSC WITH STANDBY ASSIST DURING THE NIGHT. PT HAVING SMALL TO SMEARS OF BLACK STOOL, WHEN WIPING RED BLOOD NOTED. CONT ON PROTONIX GTT. VSS. H&H IMPROVED THIS AM UP TO 10.0/31.2. GLUCOSE ON LABS WAS 62, PT TOOK CLEAR ENSURE AND APPLE JUICE. REPORT TO ON COMING NURSE
--- NOTE | 2022-03-14 13:53 | NUR ---
BM @ 1350 SMALL BM NOTED AFTER PT USED BSC, STOOL WAS BLACK BUT NOT TARRY, NO SIGNS OF LIGHT OR DARK RED BLOOD IN BSC OR ON WIPES USED BY PT.
--- NOTE | 2022-03-14 18:45 | NUR ---
SHIFT SUMMARY S/P DUODENAL ULCER/GI BLEED, PT A/O X4, VSS, TOLERATING FULL LIQUID DIET, ABLE TO GET UP WITH MINIMAL ASSISTANCE TO BSC. PT CLEARED TO DISCHARGE TOMORROW BY GI IF NO EVENTS HAPPEN DURING CANCELING AND CUTTING CONTROL CLERK, PT EDUCATED ON SLOWLY INCREASING DIET OVER NEXT 2 WEEKS. ONE BM THIS SHIFT WHICH WAS BLACK BUT NOT TARRY AND H&H CONTINUES TO RISE BACK TOWARDS NORMAL RANGE. NO ACUTE EVENTS THIS SHIFT, CALL LIGHT IN REACH, WILL CTM AND REPORT TO ONCLAURA LOOMIS RN.
[2022-03-15 03:55] LABS: BASOPHILS ABSOLUTE AUTO 0.06 K/mm3 (0.00-0.23); BASOPHILS PERCENT AUTO 1 % (0-2); EOSINOPHILS ABSOLUTE AUTO 0.17 K/mm3 (0.00-0.68); EOSINOPHILS PERCENT AUTO 1 % (0-6); Hematocrit 28.9 % (33.0-51.0); Hemoglobin 9.7 g/dL (11.5-16.0); IMMATURE GRAN ABSOLUTE AUTO 0.11 K/mm3 (0.00-0.10); IMMATURE GRAN PERCENT AUTO 1 % (0-1); LYMPHOCYTES ABSOLUTE AUTO 2.48 K/mm3 (0.84-5.20); LYMPHOCYTES PERCENT AUTO 21 % (21-46); MONOCYTES ABSOLUTE AUTO 1.23 K/mm3 (0.16-1.47); MONOCYTES PERCENT AUTO 10 % (4-13); Mean Corpuscular HGB 30.6 pg (26.0-34.0); Mean Corpuscular HGB Conc 33.6 g/dL (31.5-36.5); Mean Corpuscular Volume 91 fL (80-100); Mean Platelet Volume 9.6 fL (9.1-12.4); NEUTROPHILS ABSOLUTE AUTO 7.83 K/mm3 (1.96-9.15); NEUTROPHILS PERCENT AUTO 66 % (41-73); NRBC ABSOLUTE 0.03 K/mm3 (0.00-0.02); NRBC Auto 0.3 /100 WBC (0.0-0.2); Platelet Count 237 K/mm3 (150-400); RDW Coefficient Variation 13.7 % (11.7-14.2); RDW Standard Deviation 44.8 fL (35.1-46.3); Red Blood Cell Count 3.17 M/mm3 (3.80-5.20); White Blood Cell Count 11.88 K/mm3 (4.00-11.30)
--- NOTE | 2022-03-15 05:19 | NUR ---
PT UP TO BATHROOM X2 OVERNIGHT. NO STOOLS, BUT DID HAVE SOME MELANOUS COLORED SMEARS WHEN WIPING SELF WITH TOILET PAPER. AMBULATED WELL WITH USE OF WALKER AND JUST STANDBY ASSISTANCE. SLIGHT DIZZINESS WITH FIRST AMBULATION. NO DIZZINESS REPOIRTED WITH SECOND WALK TO BATHROOM JUST NOW. PT SLEPT WELL THROUGH THE NIGHT. HEMOGLOBIN DOWN FROM 10 TO 9.7 THIS MORNING. PT IS ANXIOUS TO GO HOME LATER TODAY.
[2022-03-15] MEDS ORDERED: DOCU100 PO (09:58)
[2022-03-15] MEDS ORDERED: MELATONIN5 M1 PO (09:59)
[2022-03-15] MEDS ORDERED: PANT40 PO (09:59)
--- NOTE | 2022-03-15 10:52 | NUR ---
PT DISCHARGED THE PT AND HER VERBALIZED UNDERSTANDING OF THE DC INSTRUCTIONS. THE PTS PRESCRIPTIONS WERE FAXED TO [facility] REQUESTED. THE PT WAS REMINDED TO CALL HER PCP FOR A POST HOSPITAL REVIEW APPOINTMENT. THE PT WAS TRANSFERED VIA WHEELCHAIR ACCOMPANIED BY HER AND THE IN FLIGHT REFUELING MANAGER
== END 2022-03-15 10:51 | disposition home or self-care (01) | DRG 378 ==
LOC: ER 10:47 → ICUW 15:29 → PCU 03-13 08:16
PROVIDERS: Family Medicine; Internal Medicine; Nurse Practitioner Acute Care; Physician Assistant; Student in an Organized Health Care Education/Training Program; ADMIT Internal Medicine
PROC: 0DJ08ZZ Inspection of Upper Intestinal Tract, Via Natural or Artificial Opening Endoscopic (ICD-10-PCS; 2022-03-10)
PROC: 30233N1 Transfusion of Nonautologous Red Blood Cells into Peripheral Vein, Percutaneous Approach (ICD-10-PCS; principal; 2022-03-10 09:30)
DX: K26.4 Chronic or unspecified duodenal ulcer with hemorrhage (principal); D62 Acute posthemorrhagic anemia; K83.09 Other cholangitis; E87.2 Acidosis; I10 Essential (primary) hypertension; E78.00 Pure hypercholesterolemia, unspecified; E11.9 Type 2 diabetes mellitus without complications; H26.9 Unspecified cataract; E03.9 Hypothyroidism, unspecified; D72.829 Elevated white blood cell count, unspecified; T39.315A Adverse effect of propionic acid derivatives, initial encounter; E83.39 Other disorders of phosphorus metabolism; Z85.840 Personal history of malignant neoplasm of eye; Z79.811 Long term (current) use of aromatase inhibitors; Z79.899 Other long term (current) drug therapy; Z79.4 Long term (current) use of insulin; Z79.02 Long term (current) use of antithrombotics/antiplatelets; Z85.3 Personal history of malignant neoplasm of breast; Z98.890 Other specified postprocedural states; Z90.12 Acquired absence of left breast and nipple; Z98.42 Cataract extraction status, left eye; Z98.41 Cataract extraction status, right eye
CPT/HCPCS: 36415; 36430; 51702; 71045; 74177; 80048; 80053; 80069; 81001; 82947; 83036; 83605; 83735; 83880; 85014; 85018; 85025; 86850; 86900; 86901; 86923; 87040; 87086; 93005; 93010; 96361; 96374; 96375; 97110; 97162; 99285-25; A9270; C1751; C9113; J0360; J0696; J1815; J2704; J2765; J7030; J7042; J7050; J7060; J7120; P9016; P9612; Q9967